=== PATIENT | male | born 1970 | race Caucasian/White ===

== ENCOUNTER 2016-11-04 01:07 | Inpatient (IN) ==
[2016-11-04] MEDS ORDERED: Aspirin 81 MG TAB.CHEW PO ONE (01:24)
[2016-11-04] MEDS: Nitroglycerin 0.4 MG TAB.SUBL SL ONE ×3 (01:36→01:59)
[2016-11-04 01:51] LABS: Basophils % 0.1 %; Eosinophils # 0.1 K/mcL (0.0-0.6); Eosinophils % 1.5 %; Immature Granulocytes % 0.4 % (0-4); Lymphocytes # 1.5 K/mcL (0.6-4.6); Lymphocytes % 21.6 %; Mean Corpuscular HGB Conc 25.9 g/dL (31.6-35.5); Mean Corpuscular Hemoglobin 15.7 pg (28.0-33.3); Mean Corpuscular Volume 60.6 fL (83.0-100.0); Mean Platelet Volume 9.3 fL (9.4-12.4); Monocytes # 0.6 K/mcL (0.0-1.3); Monocytes % 9.1 %; Neutrophils # 4.6 K/mcL (1.6-8.9); Platelet Count 299 K/mcL (140-400); Red Blood Count 2.36 M/mcL (4.19-5.50); Red Cell Distribution Width 19.4 % (11.5-14.5); Segmented Neutrophils % 67.3 %
--- NOTE | 2016-11-04 01:52 | Emergency Department Note ---
START Narrative - START START: I examined this patient and my medical decision-making was reviewed with the Resident Physician. I agree with the documented findings, disposition and treatment plan as described except to the extent set forth below. 46yo M here for lizama, weakness, chest pain eval. ekg nondiagnostic. check labs Hemoglobin was low around 4. he states he has dark stools daily of which he attributed to his crohn's disease. will need to be type and cross for 2 units.
[2016-11-04 01:55] LABS: INR 1.3; Prothrombin Time 13.8 Seconds (9.4-12.1)
[2016-11-04 01:58] LABS: Activated Partial Thrombo Time 26.6 Seconds (26.0-36.0)
[2016-11-04 02:02] LABS: BUN/Creatinine Ratio 12 (6-26); Blood Urea Nitrogen 16 mg/dL (8-26); Calcium 8.9 mg/dL (8.6-10.8); Carbon Dioxide 21 mEq/L (19-29); Chloride 110 mEq/L (98-109); Glucose 96 mg/dL (70-99); Osmolality,Calculated 287 (280-300); Potassium 3.9 mEq/L (3.5-4.5); Sodium 138 mEq/L (136-145); eGFR For African Americans > 60 (> 60); eGFR For Non-African Americans 59 (> 60)
[2016-11-04 02:04] LABS: Hematocrit 14.3 % (37.5-50.1); Hemoglobin 3.7 g/dL (12.9-16.9)
[2016-11-04 02:18] LABS: Hypochromasia Present (Not Present); Microcytosis Present (Not Present); Platelet Estimate Normal (Normal)
[2016-11-04 02:19] LABS: Schistocytes 2+ (Not Present)
--- NOTE | 2016-11-04 02:19 | Emergency Department Note ---
Disposition Clinical Impression: Blood transfusion during current hospitalization, Bloody stools Anemia Qualifiers: Anemia type: unspecified type Qualified Code(s): D64.9 - Anemia, unspecified Chest pain Qualifiers: Chest pain type: unspecified Qualified Code(s): R07.9 - Chest pain, unspecified Disposition: Admitted As Inpatient Condition: Fair Referrals: NONE,PCP [Primary Care Provider] - Forms: ED Satisfaction Letter Time of Disposition: 03:24 Chest Pain HPI - General Chief Complaint: ED Chest Pain Stated Complaint: chest pain Source: patient Limitations: no limitations Vital Signs Reviewed: Yes Nursing Notes Reviewed: Yes - History of Present Illness HPI Narrative: She is a 46-year-old male with a history of Crohn's disease presents with complaint of a pressure-like substernal chest pain that is radiating into both his upper extremities with associated nausea, vomiting, diaphoresis, worsening with exertion. He states it improves with rest. Patient says that lately he has felt weak. Severity scale (1-10): 2 - Related Data Allergies Allergy/AdvReac Type Severity Reaction Status Date / Time No Known Allergies Allergy Verified 11/04/16 01:09 All systems ED: reviewed and negative except as stated. Constitutional: Denies: fever, chills Cardiovascular: Reports: chest pain, dyspnea on exertion Respiratory: Reports: dyspnea. Denies: wheezes Gastrointestinal: Reports: nausea, vomiting, hematochezia. Denies: abdominal pain Chest Pain PMH - Past Medical History Medical history: Reports: no medical history Psychiatric history: Reports: no psych history - Social History Smoking Status: Current every day smoker Alcohol use: Reports: none Drug use: Reports: none Physical Exam Patient arrived to the room by wheelchair. He appears pale. Otherwise in no acute distress. - General Limitations: no limitations General appearance: alert, in no apparent distress - Head Head exam: atraumatic, normocephalic, normal inspection - Eye Eye exam: Present: normal appearance, PERRL, EOMI - ENT ENT exam: normal exam, normal oropharynx, mucous membranes dry - Neck Neck exam: Present: normal inspection, full ROM, trachea midline - Chest Chest inspection: Present: normal inspection, symmetric chest wall rise - Respiratory Respiratory exam: Present: normal lung sounds bilaterally. Absent: respiratory distress - Cardiovascular Cardiovascular exam: Present: tachycardia, normal heart sounds Course Course Narrative: Patient is a 46-year-old male with history of Crohn's disease. He presents in respiratory substernal chest pain that is pressure-like and radiated to both his upper extremities and he has nausea vomiting and shortness of breath. Physical exam is normal except for he does appear pale. The patient on second reevaluation admitted to having episodes of bloody stools that he thought was his normal due to his Crohn's disease. His hemoglobin was 3.7. Patient has been typed and screen 2 units of blood have been ordered. The aspirin was administered to the patient after first evaluation due to patient complaint of substernal chest pain and cardiac risk factors. It wasn't until talking to the patient a second time that he notified us that he has been having bloody stools and his hgb came back at 3.7. - Reevaluation(s) Reevaluation #1: Patient's blood pressure has remained stable. Patient is alert and oriented speaking in full sentences and pleasant. He is having nausea so I ordered him some Zofran. Time: 03:28 Vital Signs Temperature 97.6 F 11/04/16 01:10 Pulse Rate 100 11/04/16 01:10 Respiratory Rate 18 11/04/16 01:10 Blood Pressure 167/78 11/04/16 01:10 O2 Sat by Pulse Oximetry 98 11/04/16 01:10 Temperature 97.6 F 11/04/16 01:10 Pulse Rate 83 11/04/16 02:04 Respiratory Rate 16 11/04/16 02:04 Blood Pressure 123/76 11/04/16 02:04 O2 Sat by Pulse Oximetry 98 11/04/16 02:04 Oxygen Delivery Oxygen Delivery Room Air Chest Pain - Medical Records Medical records reviewed: Yes I reviewed the patient's medical records. - Lab Data Lab results reviewed: Yes I reviewed the patient's lab results. Result diagrams: 11/04/16 01:41 11/04/16 01:41 Lab Results 11/04/16 11/04/16 11/04/16 Range/Units 01:41 01:41 01:41 WBC 6.8 (4.3-11.1) K/mcL RBC 2.36 L (4.19-5.50) M/mcL Hgb 3.7 L* (12.9-16.9) g/dL Hct 14.3 L* (37.5-50.1) % MCV 60.6 L (83.0-100.0) fL MCH 15.7 L (28.0-33.3) pg MCHC 25.9 L (31.6-35.5) g/dL RDW 19.4 H (11.5-14.5) % Plt Count 299 (140-400) K/mcL MPV 9.3 L (9.4-12.4) fL Immature Gran % 0.4 (0-4) % Seg Neutrophils % 67.3 % Lymphocytes % 21.6 % Monocytes % 9.1 % Eosinophils % 1.5 % Basophils % 0.1 % Neutrophils # 4.6 (1.6-8.9) K/mcL Lymphocytes # 1.5 (0.6-4.6) K/mcL Monocytes # 0.6 (0.0-1.3) K/mcL Eosinophils # 0.1 (0.0-0.6) K/mcL Basophils # 0.0 (0.0-0.2) K/mcL Platelet Estimate Normal (Normal) Hypochromasia Present A (Not Present) Poikilocytosis 2+ A (Not Present) Anisocytosis 3+ A (Not Present) Microcytosis Present A (Not Present) Schistocytes 2+ A (Not Present) PT 13.8 H (9.4-12.1) Seconds INR 1.3 APTT 26.6 (26.0-36.0) Seconds D-Dimer 427 (0-500) ng/mLFEU Sodium (136-145) mEq/L Potassium (3.5-4.5) mEq/L Chloride (98-109) mEq/L Carbon Dioxide (19-29) mEq/L BUN (8-26) mg/dL Creatinine (0.72-1.25) mg/dL Est GFR ( Amer) (> 60) Est GFR (Non-Af Amer) (> 60) BUN/Creatinine Ratio (6-26) Glucose (70-99) mg/dL Calculated Osmolality (280-300) Calcium (8.6-10.8) mg/dL Troponin I (0-0.03) ng/mL B-Natriuretic Peptide 278 H (0-100) pg/mL Blood Type Antibody Screen Crossmatch 11/04/16 11/04/16 11/04/16 Range/Units 01:41 01:41 01:52 WBC (4.3-11.1) K/mcL RBC (4.19-5.50) M/mcL Hgb (12.9-16.9) g/dL Hct (37.5-50.1) % MCV (83.0-100.0) fL MCH (28.0-33.3) pg MCHC (31.6-35.5) g/dL RDW (11.5-14.5) % Plt Count (140-400) K/mcL MPV (9.4-12.4) fL Immature Gran % (0-4) % Seg Neutrophils % % Lymphocytes % % Monocytes % % Eosinophils % % Basophils % % Neutrophils # (1.6-8.9) K/mcL Lymphocytes # (0.6-4.6) K/mcL Monocytes # (0.0-1.3) K/mcL Eosinophils # (0.0-0.6) K/mcL Basophils # (0.0-0.2) K/mcL Platelet Estimate (Normal) Hypochromasia (Not Present) Poikilocytosis (Not Present) Anisocytosis (Not Present) Microcytosis (Not Present) Schistocytes (Not Present) PT (9.4-12.1) Seconds INR APTT (26.0-36.0) Seconds D-Dimer (0-500) ng/mLFEU Sodium 138 (136-145) mEq/L Potassium 3.9 (3.5-4.5) mEq/L Chloride 110 H (98-109) mEq/L Carbon Dioxide 21 (19-29) mEq/L BUN 16 (8-26) mg/dL Creatinine 1.32 H (0.72-1.25) mg/dL Est GFR ( Amer) > 60 (> 60) Est GFR (Non-Af Amer) 59 L (> 60) BUN/Creatinine Ratio 12 (6-26) Glucose 96 (70-99) mg/dL Calculated Osmolality 287 (280-300) Calcium 8.9 (8.6-10.8) mg/dL Troponin I 0.02 (0-0.03) ng/mL B-Natriuretic Peptide (0-100) pg/mL Blood Type B POSITIVE Antibody Screen NEGATIVE Crossmatch See Detail - Radiology Data Radiology results reviewed: Yes I reviewed the patient's radiology results. Chest X-Ray 11/04/16 01:24 IMPRESSION: No acute cardiopulmonary process. D/ / Elier Hawthorne MD / Elier Hawthorne MD Interpreting Provider: Elier Hawthorne MD Abdomen/Pelvis CT 11/04/16 01:49 IMPRESSION: No acute findings identified in the abdomen and pelvis. D/ / Bobby Nunez MD / Bobby Nunez MD Interpreting Provider: Bobby Nunez MD - EKG Data EKG attestation: Yes I reviewed and interpreted this EKG. EKG results narrative: I interpreted his EKG. EKG is normal sinus rhythm at a rate of 92. There is normal axis. Intervals are within normal limits UT is 124, QRS is 78, QT is 352. No ST elevations or depressions and no Q waves.
[2016-11-04 02:20] LABS: Anisocytosis 3+ (Not Present); Poikilocytosis 2+ (Not Present)
[2016-11-04] MEDS ORDERED: Ondansetron 4 MG/2 ML VIAL IVP ONE (02:51)
[2016-11-04] MEDS ORDERED: 0.9 % Sodium Chloride 1,000 ML ONE (03:20)
[2016-11-04] MEDS ORDERED: 0.9 % Sodium Chloride 500 ML ONE ×2 (03:21→10:48)
--- NOTE | 2016-11-04 04:58 | Internal Med History&Physical ---
Date of Encounter: 11/04/16 Time of Encounter: 04:55 Assessment and Plan (1) Iron deficiency anemia due to chronic blood loss Current visit: Yes Status: Acute Patient's hemoglobin today is 3.7. He has a reported history of Crohn's and chronic blood loss secondary to rectal bleed. We have no prior hemoglobin levels in our system. The only visit we have reflected in our system was from 2014 and office visit. Since then he has been lost for follow-up due to insurance being loss. We will provide blood transfusion to increase hemoglobin above 7. Start ferrous sulfate on discharge. We will arrange follow-up with PCP in residency clinic. (2) Crohns disease Current visit: Yes Status: Acute Patient used to follow up with GI. He has lost for follow-up due to loss of insurance. I will consult gastroenterology to see the patient while in-house due to severe complicated Crohn's disease with rectal bleeding. I will hold off on steroids for now due to lack of abdominal pain absent evidence of exacerbation. Qualifiers: Gastrointestinal tract location: large intestine Digestive disease complication type: with rectal bleeding Qualified Code(s): K50.111 - Crohn's disease of large intestine with rectal bleeding (3) Tobacco abuse Current visit: Yes Status: Acute I have advised smoking cessation. (4) Chest pain Current visit: Yes Status: Acute Likely secondary to profound anemia. We will trend troponins and monitor the patient on telemetry. Qualifiers: Chest pain type: precordial pain Qualified Code(s): R07.2 - Precordial pain (5) Bloody stools Current visit: Yes Status: Acute Internal Medicine - H&P: HPI Chief complaint: Chest pain Admitted From: Emergency Dept Plans for Post Hospital Care: Home History of present illness: Mr. Franco is a 46 year old male with past medical history significant for Crohn 's disease who presented to the hospital for evaluation of chest pain which he describes as midsternal, pressure-like, worse with exertion, 8/10 in intensity, improves with rest. He has had this chest pain for over 2 weeks and has progressively gotten worse. Workup done in the emergency department revealed negative troponin and EKG. Hemoglobin was found to be 3.7. Patient admits to having long-standing rectal bleeding secondary to Crohn's disease. He has lost his job and for the last 6 years he has not had any follow-up for Crohn's disease. A 10 point review of systems was negative except as above Family history positive for lung cancer in the patient's mother, negative for colon cancer in both parents Social history patient smokes 10 cigarettes a day denies alcohol and drug use. Past Med Surg Social Fam HX - Past Medical History Medical history: no medical history Psychiatric history: no psych history - Social History Smoking Status: Current every day smoker Smokeless Tobacco Status: No Alcohol use: none Drug use: none Internal Medicine - H&P: Meds Allergies No Known Allergies Allergy (Verified 11/04/16 01:09) All Systems PM: A 10-system review of systems was performed and is negative for pertinent findings except as documented above in the HPI. - Constitutional Vitals: Temp Pulse Resp BP Pulse Ox 98.2 F 79 16 132/73 99 11/04/16 03:58 11/04/16 03:58 11/04/16 04:30 11/04/16 04:30 11/04/16 03:38 General appearance: Present: A&O X 3 - Eye Eye exam: Present: PERRL, conjuntiva pink, sclera anicteric Pupils: Present: PERRL - Respiratory Respiratory exam: Present: CTAB. Absent: accessory muscle use, rales, rhonchi, wheezes - Cardiovascular Cardiovascular exam: Present: RRR, +S1, +S2. Absent: diastolic murmur, gallop, rubs, systolic murmur - GI/Abdominal GI/Abdominal exam: Present: normal bowel sounds, soft, no peritoneal signs. Absent: distended, tenderness - Extremities Exam Extremities exam: Present: warm, radial pulses palpable and symetrical. Absent : calf tenderness, cyanotic, pedal edema - Neurological Exam Neurological exam: Present: CN II-XII intact, oriented X3, no focal deficits. Absent: pronater drift, facial droop, speech deficit - Skin Skin exam: Present: dry, intact Internal Med - H&P Results - Labs CBC & Chem 7: 11/04/16 01:41 11/04/16 01:41 - EKG Data -: EKG Interpreted by Myself EKG shows normal: sinus rhythm, intervals, QRS complexes, ST-T waves Rate: normal
[2016-11-04] MEDS ORDERED: Acetaminophen 325 MG TABLET PO PRN (05:04)
[2016-11-04] MEDS ORDERED: *HR* HYDROcodone/Acet 5/325 mg TABLET PO PRN (05:04)
[2016-11-04] MEDS ORDERED: Ondansetron 4 MG/2 ML VIAL IVP PRN (05:04)
[2016-11-04] MEDS ORDERED: Naloxone 0.4 MG/ML INJ IVP PRN (05:04)
[2016-11-04] MEDS ORDERED: *HR* Promethazine 25 MG/ML VIAL IVP PRN (05:04)
[2016-11-04 06:15] LABS: % Iron Saturation 2 % (20-55); Iron 9 mcg/dL (65-175); Transferrin 359 mg/dL (174-364)
[2016-11-04 06:35] LABS: Ferritin 2 ng/ml (22-275)
[2016-11-04] MEDS: Nicotine 7 MG PATCH.TD24 TD SCH (09:51)
[2016-11-04 09:54] LABS: Hematocrit 19.5 % (37.5-50.1)
[2016-11-04 10:02] LABS: Hemoglobin 5.5 g/dL (12.9-16.9)
[2016-11-04] MEDS ORDERED: Furosemide 40 MG/4 ML VIAL IVP ONE (10:02)
--- NOTE | 2016-11-04 10:02 | Event Note ---
Date of Encounter: 11/04/16 Time of Encounter: 09:15 46-year-old male with history of Crohn's disease, who has been off medications for the last few years due to lack of insurance and issues with long-term employment. Patient is currently admitted with chest pain and chronic rectal bleeding. Patient is seen and examined at bedside. Reports improvement in chest pain and shortness of breath. Chest-S1, S2 heard. Lungs are clear to auscultation. Abdomen-soft and nontender Labs reviewed-microcytic anemia with hemoglobin 3.7, serum troponin 0.02 Acute on chronic microcytic anemia, due to blood loss from lower GI bleeding- patient received 2 units PRBC transfusion, check hemoglobin and plan for 2 more units of transfusion with intermittent IV Lasix. GI consulted for possible colonoscopy. Continue supportive care. Iron profile shows very low iron stores. Crohn's disease-GI consult for colonoscopy and possible initiation of medications like sulfasalazine. Steroids are not indicated at this time as this does not appear to be acute Crohn's flareup. Chronic tobacco abuse-start nicotine transdermal patch. Patient admits to smoking about 5-6 cigarettes per day.
--- NOTE | 2016-11-04 10:20 | Gastroenterology Consult Note ---
<Isabella Ozuna - Last Filed: 11/04/16 14:23> Date of Encounter: 11/04/16 Time of Encounter: 13:10 - Assessment and plan (1) Bloody stools Current Visit: Yes Status: Acute Assessment and plan: Patient complains of both melena and hematochezia, daily. Plan for EGD/Cscope tomorrow providing blood count is stable. (2) Crohns disease Current Visit: Yes Status: Acute Qualifiers: Gastrointestinal tract location: small intestine Digestive disease complication type: with rectal bleeding Qualified Code(s): K50.011 - Crohn's disease of small intestine with rectal bleeding (3) Iron deficiency anemia due to chronic blood loss Current Visit: Yes Status: Acute Assessment and plan: Fe infusion during inpatient stay. Order in for same. - Time Spent With Patient Total time spent is greater than 50% in coordination of care (as documented) at patient's floor/unit and/or counseling patient: less than 15 minutes GI History of Present Illness - Data of Consult Patient: new to practice Consult date: 11/04/16 Requesting Physician: Clarissa Mendez MD - Consult Narrative Reason for consult: rectal bleeding, anemia, hx of Crohns History of present illness: Mr. Franco is a 46 year old male with a PMH significant for Crohn's disease diagnosed in 2004, he presented to the ED for evaluation of chest pain which he described as midsternal, pressure-like, worse with exertion, 8/10 in intensity, improves with rest. He has had this chest pain for over 2 weeks and has progressively gotten worse. Workup done in the emergency department revealed negative troponin and EKG. Hemoglobin was found to be 3.7. Patient admits to having long-standing rectal bleeding secondary to Crohn's disease. He has lost his job and for the last 6 years he has not had any follow-up for Crohn's disease. The patient has subsequently had 2 units PRBC transfused raising his hgb to 5.5. Iron level 9. CT abd/pelvis was negative for any acute findings. Pt indicates that he was dx by Dr. Perez in 2004 and was initially on medications, one of which was a steroid, but had to go off the medications due to loss of his job and insurance in the past. He is now on Medicaid, but hasn't been to the doctor for many years, he has been managing his Crohn's at home by food avoidance, change in eating habits and 'just dealing with it'. Admits 7-8 BM daily, all are bloody, can be black stools. Abdominal pain/cramping daily. Weight is stable, appetite is good. Admits recent increase in acid reflux symptoms. He has not had any scopes since his last registered here at [facility]. Colonoscopy: 2004 - - Crohns at EGD: 2004 Past Med Surg Social Fam HX - Past Medical History Medical history: other Psychiatric history: no psych history - Past Surgical History Surgical History: no surgical history - Social History Smoking Status: Current every day smoker Packs per day: <1 Smokeless Tobacco Status: No Alcohol use: none Drug use: none - Family History Father Living Status: Age at : 61 Hx Family Cancer: Yes (lung CA) - Gastrointestinal NSAID use: None noted Anticoagulation Use: None noted Number of BM Per Day: 7-8 Gastrointestinal: Present: abdominal pain, diarrhea, dyspepsia, heartburn, hematochezia, melena, nausea - Constitutional Constitutional: fatigue - EENT Eyes: as per HPI Ears: Present: as per HPI Nose, mouth and throat: Present: as per HPI - Cardiovascular Cardiovascular ROS: Present: chest pain - Respiratory Respiratory IM: Present: dyspnea - Neurological ROS Neurological GI: Present: weakness - Hematologic/Lymphatic Hematologic/Lymphatic pediatric: Present: as per HPI - Musculoskeletal Musculoskeletal ROS GI: Present: back pain - Integumentary Integumentary GI: Present: as per HPI - Psychiatric ROS Psychiatric GI: Present: as per HPI - Endocrine Endocrine IM: Present: as per HPI - Constitutional Vitals: Temp Pulse Resp BP Pulse Ox 98.0 F 69 16 115/77 99 11/04/16 08:44 11/04/16 08:45 11/04/16 08:45 11/04/16 08:45 11/04/16 08:45 General appearance: Present: cooperative, A&O X 3, no acute distress, answers questions appropriately - Head Head exam: Present: atraumatic, normocephalic - Eye Eye exam: Present: normal appearance, sclera anicteric - ENT ENT exam: Present: mucous membranes moist Additional comments: poor dentition - Neck Neck exam general surgery: Present: normal inspection, trachea midline - Respiratory Respiratory exam: Present: CTAB - Cardiovascular Cardiovascular exam: Present: RRR, +S1, +S2 - GI/Abdominal GI/Abdominal exam: Present: normal bowel sounds, soft, tenderness, no peritoneal signs - Rectal Rectal exam: Present: deferred - Extremities Exam Extremities exam: Present: warm - Neurological Exam Neurological exam: Present: no focal deficits - Psychiatric Psychiatric exam: Present: normal affect, normal mood - Skin Skin exam: Present: dry, intact, normal color, warm Results - Labs CBC & Chem 7: 11/04/16 09:38 11/04/16 01:41 Labs: Last Result Calcium 8.9 mg/dL (8.6-10.8) 11/04/16 01:41 Iron 9 mcg/dL (65-175) L 11/04/16 01:41 % Saturation 2 % (20-55) L 11/04/16 01:41 Transferrin 359 mg/dL (174-364) 11/04/16 01:41 Ferritin 2 ng/ml (22-275) L 11/04/16 01:41 Troponin I 0.03 ng/mL (0-0.03) 11/04/16 09:38 Entire Visit Hgb 5.5 g/dL (12.9-16.9) L* D 11/04/16 09:38 Hct 19.5 % (37.5-50.1) L 11/04/16 09:38 PT 13.8 Seconds (9.4-12.1) H 11/04/16 01:41 Ferritin 2 ng/ml (22-275) L 11/04/16 01:41 - ABG ABG results: PT/INR, D-dimer PT 13.8 Seconds (9.4-12.1) H 11/04/16 01:41 D-Dimer 427 ng/mLFEU (0-500) 11/04/16 01:41 Consult Discharge Plan - Plan Referrals: NONE,PCP [Primary Care Provider] - <Giancarlo Sutton - Last Filed: 11/04/16 17:36> Date of Encounter: 11/04/16 Time of Encounter: 18:00 - Time Spent With Patient Total time spent is greater than 50% in coordination of care (as documented) at patient's floor/unit and/or counseling patient: GI History of Present Illness - Data of Consult Requesting Physician: Clarissa Mendez MD - Consult Narrative History of present illness: Mr. Franco is a 46 year old male - Constitutional Vitals: Temp Pulse Resp BP Pulse Ox 98.4 F 65 12 110/75 99 11/04/16 16:42 11/04/16 16:42 11/04/16 16:42 11/04/16 16:42 11/04/16 16:42 Results - Labs CBC & Chem 7: 11/04/16 09:38 11/04/16 01:41 Labs: Last Result Calcium 8.9 mg/dL (8.6-10.8) 11/04/16 01:41 Iron 9 mcg/dL (65-175) L 11/04/16 01:41 % Saturation 2 % (20-55) L 11/04/16 01:41 Transferrin 359 mg/dL (174-364) 11/04/16 01:41 Ferritin 2 ng/ml (22-275) L 11/04/16 01:41 Troponin I 0.03 ng/mL (0-0.03) 11/04/16 09:38 Entire Visit Hgb 5.5 g/dL (12.9-16.9) L* D 11/04/16 09:38 Hct 19.5 % (37.5-50.1) L 11/04/16 09:38 PT 13.8 Seconds (9.4-12.1) H 11/04/16 01:41 Ferritin 2 ng/ml (22-275) L 11/04/16 01:41 - ABG ABG results: PT/INR, D-dimer PT 13.8 Seconds (9.4-12.1) H 11/04/16 01:41 D-Dimer 427 ng/mLFEU (0-500) 11/04/16 01:41 - Attending Attestation I examined this patient and my medical decision-making was reviewed with the Resident Physician. I agree with the documented findings, disposition and treatment plan as described except to the extent set forth below.
[2016-11-04] MEDS ORDERED: Iron Sucrose Complex 400 MG in 0.9 % Sodium Chloride 250 ML IVPB ONE (14:30)
[2016-11-04] MEDS ORDERED: Polyethylene Glycol 3350 255 GM POWDER PO ONE (17:00)
--- NOTE | 2016-11-04 18:21 | Electrocardiograph Report ---
[address] [place], [place] [address] Test Date: 2016-11-04 Pat Name: Kali Franco Department: 102 Room: 11 Gender: M Skeiner: Jimi : 1970 Requested By: Bony Turner Order Number: [id number] Reading MD: Harvey Glover MD Measurements Intervals [place] Rate: 92 P: 60 HI: 124 QRS: 27 QRSD: 78 T: 51 QT: 352 QTc: 402 Interpretive Statements SINUS RHYTHM Electronically Signed On 11-04-2016 18:20:07 EDT by Harvey Glover MD
--- NOTE | 2016-11-04 18:21 | Electrocardiograph Report ---
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
[2016-11-04 19:35] LABS: Hematocrit 26.7 % (37.5-50.1)
--- NOTE | 2016-11-05 08:57 | Internal Med Progress Note ---
<Mario AlbertoFahad pereira - Last Filed: 11/05/16 08:48> Date of Encounter: 11/05/16 Time of Encounter: 08:48 - Assessment and plan (1) Iron deficiency anemia due to chronic blood loss Current Visit: Yes Status: Acute Assessment and plan: Likely related to chronic blood loss in the setting of inadequately treated Crohn's disease. Patient initially presented with hemoglobin 2.7, this is improved to 8 with 4 units of packed red blood cells. Severe iron deficiency with a percent saturation of 2 and a ferritin of 2, patient did receive 1 dose of IV iron here in the hospital. Patient will like we need to be discharged home on by mouth iron supplementation. (2) Crohns disease Current Visit: Yes Status: Acute Assessment and plan: Diagnosed approximately 10 years ago. Patient states that he has not been on any treatment for many years due to lack of insurance. He has been managing his Crohn's with diet only. He does admit to frequent bloody bowel movements. Patient has moderate to severe disease on the Crohn's disease activity index. Plan is for upper and lower endoscopy today with Dr. Sutton. Patient will likely need 5-ASA agents as well as prednisone at discharge but we appreciate gastroenterology recommendations on treatments. Social work has been consulted for assistance with medications. Qualifiers: Gastrointestinal tract location: small intestine Digestive disease complication type: with rectal bleeding Qualified Code(s): K50.011 - Crohn's disease of small intestine with rectal bleeding (3) Chest pain Current Visit: Yes Status: Acute Assessment and plan: Resolved at this time. Likely related to myocardial ischemia in the setting of profound anemia. No indication for acute coronary syndrome. Qualifiers: Chest pain type: precordial pain Qualified Code(s): R07.2 - Precordial pain (4) Tobacco abuse Current Visit: Yes Status: Acute Assessment and plan: Further discussed smoking cessation. Patient states he will think about it. (5) DVT prophylaxis Current Visit: Yes Status: Acute Assessment and plan: EPCDs - Subjective Interval history: Patient seen and examined at bedside. Patient has no complaints at this time. He denies any chest pain, shortness of breath. Patient is still having bloody BMs - Constitutional Vitals: Temp Pulse Resp BP Pulse Ox 98.1 F 63 16 114/68 98 11/05/16 07:20 11/05/16 07:24 11/05/16 07:23 11/05/16 07:23 11/05/16 07:23 General appearance: Present: A&O X 3 - Respiratory Respiratory exam: Present: CTAB. Absent: rales, rhonchi, wheezes - Cardiovascular Cardiovascular exam: Present: RRR. Absent: gallop, rubs, systolic murmur - GI/Abdominal GI/Abdominal exam: Present: normal bowel sounds, soft. Absent: distended, tenderness - Extremities Exam Extremities exam: Present: warm. Absent: pedal edema - Neurological Exam Neurological exam: Present: alert, CN II-XII intact, oriented X3 Internal Medicine: Result - Labs CBC & Chem 7: 11/04/16 19:29 11/04/16 01:41 Labs: Short CBC 11/04/16 11/04/16 Range/Units 09:38 19:29 Hgb 5.5 L* D 8.0 L D (12.9-16.9) g/dL Hct 19.5 L 26.7 L (37.5-50.1) % Cardiac Enzymes 11/04/16 11/04/16 Range/Units 09:38 19:28 Troponin I 0.03 0.00 (0-0.03) ng/mL - ABG Interpretation ABG results: PT/INR, D-dimer PT 13.8 Seconds (9.4-12.1) H 11/04/16 01:41 D-Dimer 427 ng/mLFEU (0-500) 11/04/16 01:41 Consult Discharge Plan - Plan Referrals: NONE,PCP [Primary Care Provider] - <Som Hayden - Last Filed: 11/05/16 23:06> Date of Encounter: 11/05/16 - Constitutional Vitals: Temp Pulse Resp BP Pulse Ox 98.0 F 69 16 135/77 95 11/05/16 22:06 11/05/16 22:06 11/05/16 22:06 11/05/16 22:06 11/05/16 22:06 Internal Medicine: Result - Labs CBC & Chem 7: 11/05/16 08:22 11/05/16 08:22 Labs: Short CBC 11/05/16 Range/Units 08:22 WBC 7.3 (4.3-11.1) K/mcL Hgb 8.1 L (12.9-16.9) g/dL Hct 27.6 L (37.5-50.1) % Plt Count 285 (140-400) K/mcL Neutrophils # 5.0 (1.6-8.9) K/mcL BMP 11/05/16 08:22 Sodium 140 Potassium 4.0 Chloride 107 Carbon Dioxide 26 BUN 10 Creatinine 1.16 Glucose 88 Calcium 9.3 Liver Function 11/05/16 Range/Units 08:22 Total Bilirubin 1.4 H (0.2-1.2) mg/dL AST 17 (5-34) Units/L ALT 15 (0-55) Units/L Alkaline Phosphatase 64 (38-126) Units/L Albumin 3.9 (3.5-5.0) g/dL - ABG Interpretation ABG results: PT/INR, D-dimer PT 13.8 Seconds (9.4-12.1) H 11/04/16 01:41 D-Dimer 427 ng/mLFEU (0-500) 11/04/16 01:41 - Attending Attestation I examined this patient and agree with the Residents findings.. further treatment based off tomorrow's Endoscope.. possible DC as well.
[2016-11-05 09:01] LABS: Alanine Aminotransferase 15 Units/L (0-55); Albumin 3.9 g/dL (3.5-5.0); Albumin/Globulin Ratio 1.3 (1.1-2.2); Alkaline Phosphatase 64 Units/L (38-126); Aspartate Amino Transferase 17 Units/L (5-34); BUN/Creatinine Ratio 9 (6-26); Bilirubin,Total 1.4 mg/dL (0.2-1.2); Blood Urea Nitrogen 10 mg/dL (8-26); Calcium 9.3 mg/dL (8.6-10.8); Carbon Dioxide 26 mEq/L (19-29); Chloride 107 mEq/L (98-109); Glucose 88 mg/dL (70-99); Magnesium 2.3 mg/dL (1.6-2.6); Osmolality,Calculated 288 (280-300); Sodium 140 mEq/L (136-145); Total Protein 6.9 g/dL (6.0-8.3); eGFR For African Americans > 60 (> 60); eGFR For Non-African Americans > 60 (> 60)
[2016-11-05] MEDS: Nicotine 7 MG PATCH.TD24 TD SCH (09:08)
[2016-11-05 09:13] LABS: Basophils % 0.4 %; Eosinophils # 0.2 K/mcL (0.0-0.6); Eosinophils % 3.1 %; Hematocrit 27.6 % (37.5-50.1); Hemoglobin 8.1 g/dL (12.9-16.9); Immature Granulocytes % 0.3 % (0-4); Lymphocytes # 1.2 K/mcL (0.6-4.6); Lymphocytes % 16.4 %; Mean Corpuscular HGB Conc 29.3 g/dL (31.6-35.5); Mean Corpuscular Hemoglobin 20.8 pg (28.0-33.3); Mean Corpuscular Volume 70.8 fL (83.0-100.0); Mean Platelet Volume 10.2 fL (9.4-12.4); Monocytes # 0.8 K/mcL (0.0-1.3); Monocytes % 11.2 %; Nucleated Red Blood Cells 0.3 /100 WBC (0); Platelet Count 285 K/mcL (140-400); Red Cell Distribution Width 26.6 % (11.5-14.5); Segmented Neutrophils % 68.6 %
[2016-11-05 09:42] LABS: Anisocytosis 2+ (Not Present)
[2016-11-06 04:08] LABS: Hemoglobin 8.3 g/dL (12.9-16.9); Immature Granulocytes % 0.8 % (0-4)
[2016-11-06 04:10] LABS: Basophils % 0.7 %; Eosinophils # 0.3 K/mcL (0.0-0.6); Eosinophils % 4.2 %; Hematocrit 28.7 % (37.5-50.1); Lymphocytes # 1.4 K/mcL (0.6-4.6); Lymphocytes % 23.4 %; Mean Corpuscular HGB Conc 28.9 g/dL (31.6-35.5); Mean Corpuscular Hemoglobin 20.7 pg (28.0-33.3); Mean Corpuscular Volume 71.6 fL (83.0-100.0); Mean Platelet Volume 10.5 fL (9.4-12.4); Monocytes # 0.7 K/mcL (0.0-1.3); Monocytes % 12.4 %; Nucleated Red Blood Cells 0.7 /100 WBC (0); Platelet Count 289 K/mcL (140-400); Red Blood Count 4.01 M/mcL (4.19-5.50); Red Cell Distribution Width 27.6 % (11.5-14.5); Segmented Neutrophils % 58.5 %
[2016-11-06 04:12] LABS: Neutrophils # 3.5 K/mcL (1.6-8.9)
[2016-11-06 04:50] LABS: Anisocytosis 3+ (Not Present); Burr Cells 1+ (Not Present); Hypochromasia Present (Not Present); Platelet Estimate Normal (Normal); Polychromasia 1+ (Not Present)
[2016-11-06 04:51] LABS: Acanthocytes 1+ (Not Present)
--- NOTE | 2016-11-06 08:20 | Internal Med Progress Note ---
<Mario AlbertoFahad pereira - Last Filed: 11/06/16 15:27> Date of Encounter: 11/06/16 Time of Encounter: 15:27 - Assessment and plan (1) Iron deficiency anemia due to chronic blood loss Current Visit: Yes Status: Acute Assessment and plan: Likely related to chronic blood loss in the setting of inadequately treated Crohn's disease. Patient initially presented with hemoglobin 2.7, this is improved to 8 with 4 units of packed red blood cells. Severe iron deficiency with a percent saturation of 2 and a ferritin of 2, patient did receive 1 dose of IV iron here in the hospital. Patient will be discharged home on by mouth iron supplementation. (2) Crohns disease Current Visit: Yes Status: Acute Assessment and plan: Diagnosed approximately 10 years ago. Patient states that he has not been on any treatment for many years due to lack of insurance. He has been managing his Crohn's with diet only. He does admit to frequent bloody bowel movements. Patient has moderate to severe disease on the Crohn's disease activity index. Plan is for upper and lower endoscopy today with Dr. Sutton. Patient will likely need 5-ASA agents at discharge but we appreciate gastroenterology recommendations on treatments. Social work has been consulted for assistance with medications. Qualifiers: Gastrointestinal tract location: small intestine Digestive disease complication type: with rectal bleeding Qualified Code(s): K50.011 - Crohn's disease of small intestine with rectal bleeding (3) Chest pain Current Visit: Yes Status: Acute Assessment and plan: Resolved at this time. Likely related to myocardial ischemia in the setting of profound anemia. No indication for acute coronary syndrome. Qualifiers: Chest pain type: precordial pain Qualified Code(s): R07.2 - Precordial pain (4) Tobacco abuse Current Visit: Yes Status: Acute Assessment and plan: Further discussed smoking cessation. Patient states he will think about it. (5) DVT prophylaxis Current Visit: Yes Status: Acute Assessment and plan: EPCDs - Subjective Interval history: Patient seen and examined at bedside. Patient has no complaints at this time. He denies any chest pain, shortness of breath. Patient is still having bloody BMs. He has been up walking the halls without chest pain or shortness of breath. - Constitutional Vitals: Temp Pulse Resp BP Pulse Ox 97.9 F 63 18 122/65 97 11/06/16 07:12 11/06/16 07:12 11/06/16 07:12 11/06/16 07:12 11/06/16 07:12 General appearance: Present: A&O X 3, no acute distress - Respiratory Respiratory exam: Present: CTAB. Absent: rales, rhonchi - Cardiovascular Cardiovascular exam: Present: RRR. Absent: gallop, rubs, systolic murmur - GI/Abdominal GI/Abdominal exam: Present: normal bowel sounds, soft. Absent: distended, tenderness - Extremities Exam Extremities exam: Present: warm. Absent: pedal edema, tenderness - Neurological Exam Neurological exam: Present: alert, CN II-XII intact, oriented X3, no focal deficits Internal Medicine: Result - Labs CBC & Chem 7: 11/06/16 03:11 11/05/16 08:22 Labs: Short CBC 11/05/16 11/06/16 Range/Units 08:22 03:11 WBC 7.3 5.9 (4.3-11.1) K/mcL Hgb 8.1 L 8.3 L (12.9-16.9) g/dL Hct 27.6 L 28.7 L (37.5-50.1) % Plt Count 285 289 (140-400) K/mcL Neutrophils # 5.0 3.5 (1.6-8.9) K/mcL BMP 11/05/16 08:22 Sodium 140 Potassium 4.0 Chloride 107 Carbon Dioxide 26 BUN 10 Creatinine 1.16 Glucose 88 Calcium 9.3 Liver Function 11/05/16 Range/Units 08:22 Total Bilirubin 1.4 H (0.2-1.2) mg/dL AST 17 (5-34) Units/L ALT 15 (0-55) Units/L Alkaline Phosphatase 64 (38-126) Units/L Albumin 3.9 (3.5-5.0) g/dL - ABG Interpretation ABG results: PT/INR, D-dimer PT 13.8 Seconds (9.4-12.1) H 11/04/16 01:41 D-Dimer 427 ng/mLFEU (0-500) 11/04/16 01:41 Consult Discharge Plan - Plan Referrals: NONE,PCP [Primary Care Provider] - <Som Hayden - Last Filed: 08/02/17 17:58> Date of Encounter: 11/06/16 - Constitutional Vitals: Temp Pulse Resp BP Pulse Ox 97.8 F 74 16 118/70 95 11/06/16 15:25 11/06/16 17:35 11/06/16 17:35 11/06/16 17:35 11/06/16 17:35 Internal Medicine: Result - Labs CBC & Chem 7: 11/06/16 03:11 11/05/16 08:22 Labs: Short CBC 11/06/16 Range/Units 03:11 WBC 5.9 (4.3-11.1) K/mcL Hgb 8.3 L (12.9-16.9) g/dL Hct 28.7 L (37.5-50.1) % Plt Count 289 (140-400) K/mcL Neutrophils # 3.5 (1.6-8.9) K/mcL - ABG Interpretation ABG results: PT/INR, D-dimer PT 13.8 Seconds (9.4-12.1) H 11/04/16 01:41 D-Dimer 427 ng/mLFEU (0-500) 11/04/16 01:41 - Attending Attestation I examined this patient and my medical decision-making was reviewed with the Resident Physician. I agree with the documented findings, disposition and treatment plan as described except to the extent set forth below.
[2016-11-06] MEDS: Nicotine 7 MG PATCH.TD24 TD SCH (09:46)
[2016-11-06] MEDS ORDERED: *HR* FentaNYL (PF) 100 MCG/2 ML VIAL ONE (16:31)
[2016-11-06] MEDS ORDERED: *HR* Midazolam HCl 5 MG/5 ML VIAL IVP ONE (16:31)
[2016-11-06] MEDS ORDERED: 0.9 % Sodium Chloride 500 ML IVC SCH (16:45)
[2016-11-06] MEDS ORDERED: Tetracaine/Benzocaine/Butamben 200MG/SPRAY (100SPY/BOT) MM ONE (16:57)
[2016-11-06] MEDS ORDERED: Simethicone 40 MG/0.6 ML MLS IR ONE (16:57)
[2016-11-06] MEDS: *HR* FentaNYL (PF) 100 MCG/2 ML VIAL IVP PRN ×3 (16:58→17:08)
[2016-11-06] MEDS: *HR* Midazolam HCl 5 MG/5 ML VIAL IVP PRN ×3 (16:58→17:08)
[2016-11-07 03:54] LABS: Mean Platelet Volume 9.8 fL (9.4-12.4)
[2016-11-07 03:55] LABS: Basophils # 0.1 K/mcL (0.0-0.2); Basophils % 0.8 %; Eosinophils # 0.3 K/mcL (0.0-0.6); Eosinophils % 3.1 %; Hematocrit 30.4 % (37.5-50.1); Hemoglobin 8.7 g/dL (12.9-16.9); Lymphocytes # 1.8 K/mcL (0.6-4.6); Mean Corpuscular HGB Conc 28.6 g/dL (31.6-35.5); Mean Corpuscular Volume 73.4 fL (83.0-100.0); Monocytes # 0.8 K/mcL (0.0-1.3); Monocytes % 10.1 %; Nucleated Red Blood Cells 0.5 /100 WBC (0); Platelet Count 330 K/mcL (140-400); Red Blood Count 4.14 M/mcL (4.19-5.50); Red Cell Distribution Width 28.6 % (11.5-14.5)
[2016-11-07 04:06] LABS: BUN/Creatinine Ratio 12 (6-26); Blood Urea Nitrogen 14 mg/dL (8-26); Carbon Dioxide 24 mEq/L (19-29); Chloride 109 mEq/L (98-109); Glucose 100 mg/dL (70-99); Osmolality,Calculated 289 (280-300); Potassium 4.5 mEq/L (3.5-4.5); Sodium 139 mEq/L (136-145); eGFR For African Americans > 60 (> 60); eGFR For Non-African Americans > 60 (> 60)
[2016-11-07 04:44] LABS: Anisocytosis 2+ (Not Present); Hypochromasia Present (Not Present)
[2016-11-07 04:45] LABS: Platelet Estimate Normal (Normal); Poikilocytosis 2+ (Not Present); Schistocytes 1+ (Not Present); Spherocytes 1+ (Not Present)
[2016-11-07 07:40] VITALS: BP 125/78
[2016-11-07] MEDS: Nicotine 7 MG PATCH.TD24 TD SCH (09:29)
[2016-11-07] MEDS ORDERED: Iron Sucrose Complex 400 MG in 0.9 % Sodium Chloride 250 ML IVPB ONE (09:46)
--- NOTE | 2016-11-07 09:55 | Discharge Summary ---
<Fahad Aleman - Last Filed: 11/07/16 14:32> Date of Encounter: 11/07/16 Time of Encounter: 09:53 - Discharge Diagnosis (1) Iron deficiency anemia due to chronic blood loss Priority: Primary Status: Acute (2) Crohns disease Priority: Secondary Status: Chronic Qualifiers: Gastrointestinal tract location: small intestine Digestive disease complication type: with rectal bleeding Qualified Code(s): K50.011 - Crohn's disease of small intestine with rectal bleeding (3) Chest pain Priority: Secondary Status: Resolved Qualifiers: Chest pain type: precordial pain Qualified Code(s): R07.2 - Precordial pain (4) Tobacco abuse Priority: Secondary Status: Chronic - Discharge Medications Prescriptions: Ferrous Sulfate 325 mg PO BIDWM #60 tablet Home Medications: Ferrous Sulfate 325 mg PO BIDWM #60 tablet 11/07/16 [Rx] Allergies/Adverse Reactions: Allergies No Known Allergies Allergy (Verified 11/04/16 14:47) Date of admission: 11/04/16 03:44 Primary care physician: PCP NONE Consults: 11/04/16 05:08 Consult to Physician [CONS] Routine Consulting Provider: Giancarlo Sutton Reason for Consult: Rectal bleed, profound anemia, Crohn's disease Call Completed: No 11/05/16 09:00 Consult to Foot And Ankle Surgeon [CONS] Routine Reason for SW Consult: Pt reports no access to medications Discharging clinician: Fahad Aleman Anticipated date of discharge: 11/07/16 - Patient Status Disposition: Home, Self-Care Condition: Fair Functional capacity at discharge: independent ambulation Overall status at discharge: patient is progressing back to baseline - Discharge Instructions Instructions: Ascorbic Acid/Cyanocobalamin/Ferrous Fumarate (By mouth), Iron Rich Diet (DC) Follow Up With: Giancarlo Sutton MD [Partnered Physician] - (1-2 weeks) Luis Yarbrough DO [Resident] - 11/12/16 10:00 am Forms: Inpatient Work/School Release Additional Instructions: Please follow up with the residency clinic as scheduled. Please follow up with the executive recruiter in 1 week. Please take iron tablets twice a day. Please return for any new or worsening symptoms. - Diet and Activity Activity: increase activity as tolerated Diet: advance to your usual diet Interval History: Patient seen and examined at bedside. Patient has no complaints at this time. He reports he still having occasional bloody bowel movements but the frequency is decreased. He denies chest pain, shortness of breath, nausea, vomiting. He has been up walking on the halls and has no symptoms of chest pain or shortness of breath. Hospital course: Mr. Franco is a 46 year old male with previous diagnosis of Crohn's disease presented with chest pain. Upon admission the patient was found to be profoundly anemic with a hemoglobin of 3.7. Patient states that for the last several months he has had bloody stools with every bowel movement. Patient reported that he was diagnosed with Crohn's disease 10 years ago and because of lack of insurance has not been on treatment for the last 6 years. Patient received a total of 4 units of packed red blood cells and his hemoglobin responded appropriately. The patient's symptoms resolved. Patient had upper and lower endoscopy which revealed no source of bleeding and no signs of Crohns disease. Patient also had severe iron deficiency. He received 2 doses of IV iron and will be discharged home on iron supplementation. Patient still did have some blood in his bowel movements at time of discharge however his hemoglobin remained stable. He will follow up with gastroenterology for possible capsule endoscopy. Patient will be discharged home in stable condition. - Time Spent with Patient Total time spent providing and/or coordinating discharge services: - Constitutional Vitals: Temp Pulse Resp BP Pulse Ox 98.1 F 76 18 125/78 96 11/07/16 07:37 11/07/16 07:37 11/07/16 07:37 11/07/16 07:37 11/07/16 07:37 General appearance: Present: A&O X 3, no acute distress - Respiratory Respiratory exam: Present: CTAB. Absent: rales, rhonchi, wheezes - Cardiovascular Cardiovascular exam: Present: RRR. Absent: gallop, rubs, systolic murmur - GI/Abdominal GI/Abdominal exam: Present: normal bowel sounds, soft. Absent: distended, tenderness - Neurological Exam Neurological exam: Present: alert, CN II-XII intact, oriented X3, no focal deficits <Som Hayden - Last Filed: 11/07/16 20:14> Date of Encounter: 11/07/16 Date of admission: 11/04/16 03:44 Primary care physician: PCP NONE Consults: 11/04/16 05:08 Consult to Physician [CONS] Routine Consulting Provider: Giancarlo Sutton Reason for Consult: Rectal bleed, profound anemia, Crohn's disease Call Completed: No 11/05/16 09:00 Consult to Foot And Ankle Surgeon [CONS] Routine Reason for SW Consult: Pt reports no access to medications Hospital course: Mr. Franco is a 46 year old male - Time Spent with Patient Total time spent providing and/or coordinating discharge services: - Constitutional Vitals: Temp Pulse Resp BP Pulse Ox 98.1 F 76 18 125/78 96 11/07/16 07:37 11/07/16 07:37 11/07/16 07:37 11/07/16 07:37 11/07/16 07:37 - Attending Attestation I examined this patient and my medical decision-making was reviewed with the Resident Physician. I agree with the documented findings, disposition and treatment plan as described except to the extent set forth below He is stable for DC., this does not act like obscure GI bleeding. Still somewhat suspicious for Hemorrhoid bleeding.
== END 2016-11-07 12:56 | disposition home or self-care (01) | DRG 245 ==
LOC: EMEROO 01:07 → SUATTDRO 03:44 → ICNU 03:44 → 2NENU 11-05 22:00
PROVIDERS: ADMIT Internal Medicine Hematology & Oncology; ATTEND Internal Medicine
PROC: ENDOEBX (2016-11-06 13:45)